=== PATIENT | female | born 1960 | race Caucasian/White ===

== ENCOUNTER 2018-10-13 00:06 | Outpatient (CLI) | payer OTHER, SELFPAY ==
--- NOTE | 2018-10-13 10:30 | ETT_ITS ---
*[facility]* *[facility]* [address] [place] [address] Stress Electrocardiography Georges protocol Date of study: 10/13/2018 *PATIENT PRESENTATION* Height: 157.5cm (62in) Blood Pressure: Weight: 104.5kg (230lb) BSA: 2.2m^2 Ordering physician: Layne Edwards Impressions: - Normal study after maximal exercise. - Patient reported chest discomfort prior to starting ETT. Chest pain persisted throughout. No objective EKG changes. Summary: 1. Stress: The target heart rate was achieved. Recommendations: Could consider perfusion study of high index of suspicion for CAD. Indication: R07.9. History: REASON FOR TESTING: PATIENT REPORTS HAVING INTERMITTENT RIGHT SIDED CHEST PRESSURE WHICH RADIATES AROUND TO UPPER BACK AT LEAST THREE TIMES PER WEEK OVER THE LAST TWO MONTHS. THIS CHEST PRESSURE CAN HAPPEN AT REST OR WITH ACTIVITY. SHE REPORTS OCCASIONAL SOB AND CLAMMYNESS WITH ACTIVITY AND CHEST PRESSURE. PATIENT REPORTED RIGHT SIDED CHEST PRESSURE (5/10), DENIES SOB, UPON ARRIVAL TO TESTING TODAY. SIGNIFICANT PAST MEDICAL HISTORY: GERD. SMOKING STATUS: NEVER. 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 Risk factors: Family history of coronary artery disease. Hypertension. Obesity. Cholesterol: 142mg/dl. HDL: 58mg/dl. LDL: 61mg/dl. Triglycerides: 113mg/dl. ALLERGIES: COMPAZINE. MEDICATIONS: LISINOPRIL 5 MG DAILY, LORAZEPAM 0.5 MG PRN, OMEPRAZOLE 20 MG DAILY, PROAIR HFA IH PRN, VENLAFAZINE ER 37.5 DAILY. Protocol: Georges protocol. Baseline ECG: SINUS RHYTHM. HR 72 BPM. Stress protocol: + +---+ + !Stage !HR !BP (mmHg) ! + +---+ + !Baseline supine !72 !158/96 (117) ! + +---+ + !Baseline standing !78 !152/90 (111) ! + +---+ + !Stage I; 1.7mph, 10degrees; 3 min !122!162/88 (113) ! + +---+ + !Stage II; 2.5mph, 12degrees; 3 min!141!172/88 (116) ! + +---+ + !Peak stress !143! ! + +---+ + !Recovery; 1 min !114!178/92 (121) ! + +---+ + !Recovery; 3 min !92 !174/96 (122) ! + +---+ + !Recovery; 6 min !86 !170/90 (117) ! + +---+ + !Recovery; 9 min !83 !160/98 (119) ! + +---+ + !Recovery; 12 min !83 !162/102 (122)! + +---+ + * Stress results: STRESS TEST ENDED IN 6 MINUTES 12 SECONDS DUE TO ONSET OF MID STERNAL CHEST PRESSURE (6/10). NORMAL HEART RATE RESPONSE TO EXERCISE. HYPERTENSIVE BLOOD PRESSURE AT BASELINE. NORMAL BLOOD PRESSURE REPONSE TO EXERCISE. MAX HEART RATE: 143. 88 % OF TARGET HEART RATE ACHIEVED. MET'S: 7.34. NO ECTOPY. MIDSTERNAL CHEST PRESSURE (5/10) AT START/ REST. MIDSTERNAL CHEST PRESSURE (6/10) AT 6 MINUTES OF EXERCISE. MIDSTERNAL AND LEFT SIDED CHEST PRESSURE (6/10) AT 2 MINUTES 19 SECONDS OF RECOVERY FROM EXERCISE. MIDSTERNAL AND LEFT SIDED CHEST PRESSURE (5/10) AT 4 MINUTES OF RECOVERY FROM EXERCISE. MIDSTERNAL AND LEFT SIDED CHEST PRESSURE (410) AT 6 MINUTES 10 SECONDS OF RECOVERY FROM EXERCISE. MIDSTERNAL AND LEFT SIDED CHEST PRESSURE (3/10) AT 9 MINUTES 40 SECONDS OF RECOVERY FROM EXERCISE. MIDSTERNAL AND LEFT SIDED CHEST PRESSURE COMPLELTELY GONE AT 13 MINUTES 20 SECONDS OF RECOVERY FROM EXERCISE. NO SIGNIFICANT ST SEGMENT CHANGES. AVERAGE FUNCTIONAL CAPACITY. The target heart rate was achieved. The rate-pressure product for the peak heart rate and blood pressure was 84337bc Hg/min. Study data: Garth Cuellar MD supervised and was readily available during the procedure. This study was interpreted by [facility]. Study status: Routine. Consent: The risks, benefits, and alternatives to the procedure were explained to the patient and informed consent was obtained. Procedure: Initial setup. A baseline ECG was recorded. Surface ECG leads and manual cuff blood pressure measurements were monitored. Heart sounds: Normal. Lung sounds: Normal. Treadmill exercise testing was performed using the Georges protocol. Study completion: The patient tolerated the procedure well and was discharged from the lab. Discharge: The patient left the laboratory in stable condition. Birthdate: Patient birthdate: 1960. Sex: Gender: female. Study date: Study date: 10/13/2018. Study time: 00:01 AM. Signature Documentation: The Stress ECG portion of this study was interpreted by Garth Cuellar MD. Electronically signed by Garth Cuellar 10/13/2018 12:50
== END 2018-10-13 00:26 ==
PROVIDERS: PCP Internal Medicine; Visit Provider Internal Medicine
DX: R07.9 Chest pain, unspecified (principal); R06.02 Shortness of breath; I10 Essential (primary) hypertension; K21.9 Gastro-esophageal reflux disease without esophagitis
CPT/HCPCS: 93017